=== PATIENT | female | born 1985 | race African-American/Black ===

== ENCOUNTER 2017-09-20 22:11 | Emergency (ER) | payer OTHER ==
[~2017-09-20] VITALS: Ht 154.9 cm; Wt 82.6 kg
[~2017-09-20 22:11] MED LIST: AZITHROMYCIN250 MG ORAL; MECLIZINE HCL25 MG ORAL
[2017-09-20 22:20] VITALS: BP 117/78
[2017-09-20] MEDS ORDERED: IBUPROFEN600 MG ORAL (22:26)
--- NOTE | 2017-09-20 22:27 | Emergency Room Report ---
History of Present Illness General Chief Complaint: General Complaint Source: Patient Present Illness HPI Is a 32-year-old female presents with headache. She felt her pain to the back of her head. No trauma. Onset last night. Woke up with pain. No nausea no vomiting. No fever or chills. This occur after she was pressing her hair. Allergies: Coded Allergies: NO KNOWN ALLERGIES (Unverified Allergy, Unknown, 05/04/15) Patient History Past Medical History: see triage record, old chart reviewed Past Surgical History: none Pertinent Family History: none Social History: Denies: smoking Last Menstrual Period: 08/25/18 Now: No Immunizations: other Reviewed Nursing Documentation: PMH: Agreed, PSxH: Agreed Review of Systems Eye: Denies: eye pain, blurred vision ENT: Denies: ear pain, nose congestion, throat swelling Respiratory: Denies: cough, shortness of breath Cardiovascular: Denies: chest pain, palpitations Gastrointestinal: Denies: abdominal pain, diarrhea, nausea, vomiting Musculoskeletal: Denies: back pain, joint pain Skin: Denies: rash Neurological: Denies: headache, numbness Endocrine: Denies: increased thirst, increased urine Hematologic/Lymphatic: Denies: easy bruising All Other Systems: negative except mentioned in HPI Physical Exam Vital Signs Date Time Temp Pulse Resp B/P (MAP) Pulse Ox O2 Delivery O2 Flow Rate FiO2 09/20/17 22:14 97.9 62 20 117/78 98 Room Air vitals normal. Sp02 EP Interpretation: reviewed, normal General Appearance: well appearing, no apparent distress, alert Head: normocephalic, atraumatic, other - left occipital area: area of tenderness measuring about 2cm. no hematoma palpated. no infection Eyes: bilateral eye PERRL, bilateral eye EOMI ENT: hearing grossly normal, normal pharynx Neck: full range of motion, supple, no meningismus Respiratory: chest non-tender, lungs clear, normal breath sounds Cardiovascular #1: regular rate, rhythm, no murmur Gastrointestinal: normal bowel sounds, non tender, no mass, no organomegaly, no bruit, non-distended Musculoskeletal: back normal, gait/station normal, normal range of motion Psychiatric: mood/affect normal Skin: warm/dry Medical Decision Making Diagnostic Impression: Primary Impression: Contusion of scalp, initial encounter ER Course In with pain to the scalp. Most likely contusion. No evidence of any infection. We'll discharge home. Last Vital Signs Date Time Temp Pulse Resp B/P (MAP) Pulse Ox O2 Delivery O2 Flow Rate FiO2 09/20/17 22:14 97.9 62 20 117/78 98 Room Air Status: unchanged Disposition: HOME, SELF-CARE Condition: Stable Scripts Ibuprofen* (MOTRIN*) 600 Mg Tablet 600 MG ORAL Q8H Y for For Pain, #30 TAB 0 Refills Prov: RENETTA DOSS M.D. 09/20/17 Additional Instructions: Ice pack to area. Follow up with your doctor as needed in 7 days. Return if worse. RENETTA DOSS M.D. Sep 20, 2017 22:27
[2017-09-20 22:37] VITALS: BP 117/78
== END 2017-09-20 22:40 | disposition home or self-care (01) ==
LOC: EMR 22:38
DX: S00.03XA Contusion of scalp, initial encounter (principal); X58.XXXA Exposure to other specified factors, initial encounter; Y92.9 Unspecified place or not applicable
CPT/HCPCS: 99283